=== PATIENT | male | born 1955 | race Caucasian/White ===

== ENCOUNTER 2017-11-29 09:18 | Day surgery (SDC) | payer BC ==
[~2017-11-29 09:18] MED LIST: CETI-102 PO; FLUO20CA39 PO; GABA600T2 PO; LISI1TAB13 PO; METH-603 PO; PER10325T PO
[2017-11-29] MEDS ORDERED: LIDOcaine 2% 5ml jelly ONE (09:55)
== END 2017-11-29 11:28 | disposition home or self-care (01) ==
LOC: WOUND CARE 09:18
PROVIDERS: ATTEND Surgery
DX: L97.521 Non-pressure chronic ulcer of other part of left foot limited to breakdown of skin (principal); I10 Essential (primary) hypertension; E66.9 Obesity, unspecified; I87.2 Venous insufficiency (chronic) (peripheral); F32.9 Major depressive disorder, single episode, unspecified; Z89.511 Acquired absence of right leg below knee; Z79.891 Long term (current) use of opiate analgesic; Z79.899 Other long term (current) drug therapy
CPT/HCPCS: 11044; 97597; A6021; A6206; A6446; L3260

== ENCOUNTER 2017-12-06 11:05 | Day surgery (SDC) | payer BC ==
[2017-12-06] MEDS ORDERED: LIDOcaine 2% 5ml jelly ONE (11:43)
== END 2017-12-06 12:15 | disposition home or self-care (01) ==
LOC: WOUND CARE 11:05
PROVIDERS: ATTEND Surgery
DX: L97.521 Non-pressure chronic ulcer of other part of left foot limited to breakdown of skin (principal); I10 Essential (primary) hypertension; E66.9 Obesity, unspecified; I87.2 Venous insufficiency (chronic) (peripheral); G47.30 Sleep apnea, unspecified; F32.9 Major depressive disorder, single episode, unspecified; Z89.511 Acquired absence of right leg below knee; Z79.891 Long term (current) use of opiate analgesic; Z79.899 Other long term (current) drug therapy; Z87.442 Personal history of urinary calculi
CPT/HCPCS: 11044; 36415; 83036; A6021; A6206

== ENCOUNTER 2017-12-13 09:58 | Day surgery (SDC) | payer BC | END 2017-12-13 11:58 | disposition home or self-care (01) | LOC: WOUND CARE 09:58 | PROVIDERS: ATTEND Surgery | DX: T81.89XD Other complications of procedures, not elsewhere classified, subsequent encounter (principal); L97.521 Non-pressure chronic ulcer of other part of left foot limited to breakdown of skin; L89.899 Pressure ulcer of other site, unspecified stage; I10 Essential (primary) hypertension; E66.9 Obesity, unspecified; I87.2 Venous insufficiency (chronic) (peripheral); F32.9 Major depressive disorder, single episode, unspecified; Z89.511 Acquired absence of right leg below knee; Z79.891 Long term (current) use of opiate analgesic; Z79.899 Other long term (current) drug therapy; Z87.442 Personal history of urinary calculi; Y83.8 Other surgical procedures as the cause of abnormal reaction of the patient, or of later complication, without mention of misadventure at the time of the procedure | CPT/HCPCS: 11042; A6206; A6212 ==

== ENCOUNTER 2017-12-20 09:40 | Day surgery (SDC) | payer BC, OTHER ==
[2017-12-20] MEDS ORDERED: LIDOcaine 2% 5ml jelly ONE (10:17)
== END 2017-12-20 11:25 | disposition home or self-care (01) ==
LOC: WOUND CARE 09:40
PROVIDERS: ATTEND Surgery
DX: T81.89XD Other complications of procedures, not elsewhere classified, subsequent encounter (principal); L97.521 Non-pressure chronic ulcer of other part of left foot limited to breakdown of skin; I10 Essential (primary) hypertension; E66.9 Obesity, unspecified; I87.2 Venous insufficiency (chronic) (peripheral); F32.9 Major depressive disorder, single episode, unspecified; Z89.511 Acquired absence of right leg below knee; Z79.891 Long term (current) use of opiate analgesic; Z79.899 Other long term (current) drug therapy; Z87.442 Personal history of urinary calculi; Y83.8 Other surgical procedures as the cause of abnormal reaction of the patient, or of later complication, without mention of misadventure at the time of the procedure
CPT/HCPCS: 11042; A6021; A6212; A6222

== ENCOUNTER 2017-12-27 09:47 | Day surgery (SDC) | payer BC, OTHER ==
[2017-12-27] MEDS: LIDOcaine 2% 5ml jelly ONE (10:15)
== END 2017-12-27 10:46 | disposition home or self-care (01) ==
LOC: WOUND CARE 09:47
PROVIDERS: ATTEND Surgery
DX: T81.89XD Other complications of procedures, not elsewhere classified, subsequent encounter (principal); L97.521 Non-pressure chronic ulcer of other part of left foot limited to breakdown of skin; I10 Essential (primary) hypertension; E66.9 Obesity, unspecified; I87.2 Venous insufficiency (chronic) (peripheral); F32.9 Major depressive disorder, single episode, unspecified; Z89.511 Acquired absence of right leg below knee; Z79.891 Long term (current) use of opiate analgesic; Z79.899 Other long term (current) drug therapy; Z87.442 Personal history of urinary calculi; Y83.8 Other surgical procedures as the cause of abnormal reaction of the patient, or of later complication, without mention of misadventure at the time of the procedure
CPT/HCPCS: 97597; A6021; A6206

== ENCOUNTER 2018-01-03 09:33 | Day surgery (SDC) | payer BC, OTHER ==
[2018-01-03] MEDS ORDERED: LIDOcaine 2% 5ml jelly ONE (10:12)
== END 2018-01-03 11:12 | disposition home or self-care (01) ==
LOC: WOUND CARE 09:33
PROVIDERS: ATTEND Surgery
DX: L89.899 Pressure ulcer of other site, unspecified stage (principal); L97.521 Non-pressure chronic ulcer of other part of left foot limited to breakdown of skin; I10 Essential (primary) hypertension; E66.9 Obesity, unspecified; I87.2 Venous insufficiency (chronic) (peripheral); G47.30 Sleep apnea, unspecified; F32.9 Major depressive disorder, single episode, unspecified; Z89.511 Acquired absence of right leg below knee; Z79.891 Long term (current) use of opiate analgesic; Z79.899 Other long term (current) drug therapy; Z87.442 Personal history of urinary calculi
CPT/HCPCS: 11042; A6021; A6206; A6212

== ENCOUNTER 2018-01-12 09:26 | Day surgery (SDC) | payer BC, OTHER ==
[2018-01-12] MEDS ORDERED: LIDOcaine 2% 5ml jelly ONE (10:46)
== END 2018-01-12 11:22 | disposition home or self-care (01) ==
LOC: WOUND CARE 09:26
PROVIDERS: ATTEND Surgery
DX: L97.521 Non-pressure chronic ulcer of other part of left foot limited to breakdown of skin (principal); L89.899 Pressure ulcer of other site, unspecified stage; I10 Essential (primary) hypertension; I87.2 Venous insufficiency (chronic) (peripheral); E66.9 Obesity, unspecified; G47.30 Sleep apnea, unspecified; F32.9 Major depressive disorder, single episode, unspecified; Z79.899 Other long term (current) drug therapy; Z89.511 Acquired absence of right leg below knee
CPT/HCPCS: 11042; A6021; A6206

== ENCOUNTER 2018-01-19 08:50 | Outpatient (CLI) | payer MEDICARE, OTHER | END 2018-01-19 09:45 | disposition home or self-care (01) | LOC: WOUND CARE 08:50 → EDSTATUS 09:30 → WOUND CARE 09:45 | PROVIDERS: ATTEND Surgery | DX: L97.521 Non-pressure chronic ulcer of other part of left foot limited to breakdown of skin (principal); L89.899 Pressure ulcer of other site, unspecified stage; I10 Essential (primary) hypertension; I87.2 Venous insufficiency (chronic) (peripheral); E66.9 Obesity, unspecified; G47.30 Sleep apnea, unspecified; F32.9 Major depressive disorder, single episode, unspecified; Z79.899 Other long term (current) drug therapy; Z89.511 Acquired absence of right leg below knee | CPT/HCPCS: 99211; A6021; A6206 ==

== ENCOUNTER 2018-01-24 08:53 | Day surgery (SDC) | payer MEDICARE, OTHER ==
[2018-01-24] MEDS ORDERED: LIDOcaine 2% 5ml jelly ONE (09:55)
== END 2018-01-24 10:38 | disposition home or self-care (01) ==
LOC: WOUND CARE 08:53
PROVIDERS: ATTEND Surgery
DX: L97.521 Non-pressure chronic ulcer of other part of left foot limited to breakdown of skin (principal); L89.899 Pressure ulcer of other site, unspecified stage; I10 Essential (primary) hypertension; I87.2 Venous insufficiency (chronic) (peripheral); E66.9 Obesity, unspecified; G47.30 Sleep apnea, unspecified; F32.9 Major depressive disorder, single episode, unspecified; Z79.899 Other long term (current) drug therapy; Z89.511 Acquired absence of right leg below knee
CPT/HCPCS: 11044; A6021; A6206

== ENCOUNTER 2018-02-09 09:03 | Day surgery (SDC) | payer MEDICARE, OTHER | END 2018-02-09 10:03 | disposition home or self-care (01) | LOC: WOUND CARE 09:03 | PROVIDERS: ATTEND Surgery | DX: L89.899 Pressure ulcer of other site, unspecified stage (principal); L97.521 Non-pressure chronic ulcer of other part of left foot limited to breakdown of skin; I10 Essential (primary) hypertension; I87.2 Venous insufficiency (chronic) (peripheral); E66.9 Obesity, unspecified; G47.30 Sleep apnea, unspecified; F32.9 Major depressive disorder, single episode, unspecified; Z79.899 Other long term (current) drug therapy; Z89.511 Acquired absence of right leg below knee | CPT/HCPCS: 97597; A6021; A6206; A6212 ==

== ENCOUNTER 2018-02-23 09:16 | Day surgery (SDC) | payer MEDICARE, OTHER ==
[2018-02-23] MEDS ORDERED: LIDOcaine 2% 5ml jelly ONE (09:27)
== END 2018-02-23 10:12 | disposition home or self-care (01) ==
LOC: WOUND CARE 09:16
PROVIDERS: ATTEND Surgery
DX: T87.89 Other complications of amputation stump (principal); L89.894 Pressure ulcer of other site, stage 4; I87.2 Venous insufficiency (chronic) (peripheral); I10 Essential (primary) hypertension; E66.9 Obesity, unspecified; G47.30 Sleep apnea, unspecified; F32.9 Major depressive disorder, single episode, unspecified; Z79.899 Other long term (current) drug therapy; Z89.511 Acquired absence of right leg below knee; Y83.5 Amputation of limb(s) as the cause of abnormal reaction of the patient, or of later complication, without mention of misadventure at the time of the procedure
CPT/HCPCS: 11042; 87070; 87075; 87077; 87102; A6021; A6206; A6209

== ENCOUNTER 2018-02-27 09:10 | Day surgery (SDC) | payer MEDICARE, OTHER ==
[2018-02-27] MEDS ORDERED: LIDOcaine 2% 5ml jelly ONE (10:06)
== END 2018-02-27 11:02 | disposition home or self-care (01) ==
LOC: WOUND CARE 09:10
PROVIDERS: ATTEND Surgery
DX: T87.89 Other complications of amputation stump (principal); L89.894 Pressure ulcer of other site, stage 4; L97.811 Non-pressure chronic ulcer of other part of right lower leg limited to breakdown of skin; I10 Essential (primary) hypertension; I87.2 Venous insufficiency (chronic) (peripheral); E66.9 Obesity, unspecified; G47.30 Sleep apnea, unspecified; F32.9 Major depressive disorder, single episode, unspecified; Z79.899 Other long term (current) drug therapy; Z89.511 Acquired absence of right leg below knee; Y83.5 Amputation of limb(s) as the cause of abnormal reaction of the patient, or of later complication, without mention of misadventure at the time of the procedure
CPT/HCPCS: 11043; 82948; A6021; A6206; A6212

== ENCOUNTER 2018-03-05 09:17 | Day surgery (SDC) | payer MEDICARE, OTHER ==
[2018-03-05] MEDS ORDERED: LIDOcaine 2% 5ml jelly ONE (09:57)
== END 2018-03-05 10:57 | disposition home or self-care (01) ==
LOC: WOUND CARE 09:17
PROVIDERS: ATTEND Surgery
DX: T87.89 Other complications of amputation stump (principal); L89.894 Pressure ulcer of other site, stage 4; L97.811 Non-pressure chronic ulcer of other part of right lower leg limited to breakdown of skin; I10 Essential (primary) hypertension; I87.2 Venous insufficiency (chronic) (peripheral); E66.9 Obesity, unspecified; G47.30 Sleep apnea, unspecified; F32.9 Major depressive disorder, single episode, unspecified; Z79.899 Other long term (current) drug therapy; Z89.511 Acquired absence of right leg below knee; Y83.5 Amputation of limb(s) as the cause of abnormal reaction of the patient, or of later complication, without mention of misadventure at the time of the procedure
CPT/HCPCS: 11042; A6021; A6206; A6212

== ENCOUNTER 2018-03-12 09:11 | Day surgery (SDC) | payer MEDICARE, OTHER ==
[2018-03-12] MEDS ORDERED: LIDOcaine 2% 5ml jelly ONE (09:40)
== END 2018-03-12 10:36 | disposition home or self-care (01) ==
LOC: WOUND CARE 09:11
PROVIDERS: ATTEND Surgery
DX: T87.89 Other complications of amputation stump (principal); L89.894 Pressure ulcer of other site, stage 4; I10 Essential (primary) hypertension; I87.2 Venous insufficiency (chronic) (peripheral); E66.9 Obesity, unspecified; G47.30 Sleep apnea, unspecified; F32.9 Major depressive disorder, single episode, unspecified; Z79.899 Other long term (current) drug therapy; Z89.511 Acquired absence of right leg below knee; Y83.5 Amputation of limb(s) as the cause of abnormal reaction of the patient, or of later complication, without mention of misadventure at the time of the procedure
CPT/HCPCS: 15271; A6206; A6209; Q4172; Q4102

== ENCOUNTER 2018-03-19 09:10 | Day surgery (SDC) | payer MEDICARE, OTHER ==
[2018-03-19] MEDS ORDERED: LIDOcaine 2% 5ml jelly ONE (09:41)
== END 2018-03-19 10:30 | disposition home or self-care (01) ==
LOC: WOUND CARE 09:10
PROVIDERS: ATTEND Surgery
DX: T87.89 Other complications of amputation stump (principal); L89.894 Pressure ulcer of other site, stage 4; I10 Essential (primary) hypertension; I87.2 Venous insufficiency (chronic) (peripheral); E66.9 Obesity, unspecified; G47.30 Sleep apnea, unspecified; F32.9 Major depressive disorder, single episode, unspecified; Z79.899 Other long term (current) drug therapy; Z89.511 Acquired absence of right leg below knee; Y83.5 Amputation of limb(s) as the cause of abnormal reaction of the patient, or of later complication, without mention of misadventure at the time of the procedure
CPT/HCPCS: 11042; A6021; A6206; A6212

== ENCOUNTER 2018-03-26 09:14 | Day surgery (SDC) | payer MEDICARE, OTHER ==
[2018-03-26] MEDS ORDERED: LIDOcaine 2% 5ml jelly ONE (09:38)
== END 2018-03-26 10:38 | disposition home or self-care (01) ==
LOC: WOUND CARE 09:14
PROVIDERS: ATTEND Surgery
DX: T87.89 Other complications of amputation stump (principal); L89.894 Pressure ulcer of other site, stage 4; I10 Essential (primary) hypertension; I87.2 Venous insufficiency (chronic) (peripheral); E66.9 Obesity, unspecified; G47.30 Sleep apnea, unspecified; F32.9 Major depressive disorder, single episode, unspecified; Z79.899 Other long term (current) drug therapy; Z89.511 Acquired absence of right leg below knee; Y83.5 Amputation of limb(s) as the cause of abnormal reaction of the patient, or of later complication, without mention of misadventure at the time of the procedure
CPT/HCPCS: 15271; A6021; A6209; A6222; Q4131

== ENCOUNTER 2018-04-02 09:15 | Outpatient (CLI) | payer MEDICARE, OTHER ==
[2018-04-02] MEDS ORDERED: LIDOcaine 2% 5ml jelly ONE (09:36)
== END 2018-04-02 10:46 | disposition home or self-care (01) ==
LOC: WOUND CARE 09:15
PROVIDERS: ATTEND Surgery
DX: T87.89 Other complications of amputation stump (principal); L89.894 Pressure ulcer of other site, stage 4; I10 Essential (primary) hypertension; I87.2 Venous insufficiency (chronic) (peripheral); E66.9 Obesity, unspecified; G47.30 Sleep apnea, unspecified; F32.9 Major depressive disorder, single episode, unspecified; Z79.899 Other long term (current) drug therapy; Z89.511 Acquired absence of right leg below knee; Y83.5 Amputation of limb(s) as the cause of abnormal reaction of the patient, or of later complication, without mention of misadventure at the time of the procedure
CPT/HCPCS: 99215; A6021; A6206; A6209

== ENCOUNTER 2018-04-10 09:00 | Day surgery (SDC) | payer MEDICARE, OTHER ==
[2018-04-10] MEDS ORDERED: LIDOcaine 2% 5ml jelly ONE (09:51)
== END 2018-04-10 11:04 | disposition home or self-care (01) ==
LOC: WOUND CARE 09:00
PROVIDERS: ATTEND Surgery
DX: T87.89 Other complications of amputation stump (principal); L89.894 Pressure ulcer of other site, stage 4; I10 Essential (primary) hypertension; I87.2 Venous insufficiency (chronic) (peripheral); E66.9 Obesity, unspecified; G47.30 Sleep apnea, unspecified; F32.9 Major depressive disorder, single episode, unspecified; Z79.899 Other long term (current) drug therapy; Z89.511 Acquired absence of right leg below knee; Y83.5 Amputation of limb(s) as the cause of abnormal reaction of the patient, or of later complication, without mention of misadventure at the time of the procedure
CPT/HCPCS: 15271; A6209; A6222; Q4131; A6250

== ENCOUNTER 2018-04-16 08:55 | Day surgery (SDC) | payer MEDICARE, OTHER ==
[2018-04-16] MEDS ORDERED: LIDOcaine 2% 5ml jelly ONE (09:34)
== END 2018-04-16 10:14 | disposition home or self-care (01) ==
LOC: WOUND CARE 08:55
PROVIDERS: ATTEND Surgery
DX: T87.89 Other complications of amputation stump (principal); L89.894 Pressure ulcer of other site, stage 4; I10 Essential (primary) hypertension; I87.2 Venous insufficiency (chronic) (peripheral); E66.9 Obesity, unspecified; G47.30 Sleep apnea, unspecified; F32.9 Major depressive disorder, single episode, unspecified; Z79.899 Other long term (current) drug therapy; Z89.511 Acquired absence of right leg below knee; Y83.5 Amputation of limb(s) as the cause of abnormal reaction of the patient, or of later complication, without mention of misadventure at the time of the procedure
CPT/HCPCS: 15271; A6021; A6206; A6209; Q4131; A6250

== ENCOUNTER 2018-04-23 09:00 | Day surgery (SDC) | payer MEDICARE, OTHER ==
[2018-04-23] MEDS ORDERED: LIDOcaine 2% 5ml jelly ONE (09:45)
== END 2018-04-23 10:24 | disposition home or self-care (01) ==
LOC: WOUND CARE 09:00
PROVIDERS: ATTEND Surgery
DX: T87.89 Other complications of amputation stump (principal); L89.894 Pressure ulcer of other site, stage 4; I10 Essential (primary) hypertension; I87.2 Venous insufficiency (chronic) (peripheral); E66.9 Obesity, unspecified; G47.30 Sleep apnea, unspecified; F32.9 Major depressive disorder, single episode, unspecified; Z79.899 Other long term (current) drug therapy; Z89.511 Acquired absence of right leg below knee; Y83.5 Amputation of limb(s) as the cause of abnormal reaction of the patient, or of later complication, without mention of misadventure at the time of the procedure
CPT/HCPCS: 97597; A6021; A6206; A6212; A6446

== ENCOUNTER 2018-04-30 08:15 | Day surgery (SDC) | payer MEDICARE, OTHER | END 2018-04-30 10:04 | disposition home or self-care (01) | LOC: WOUND CARE 08:15 | PROVIDERS: ATTEND Surgery | DX: T87.89 Other complications of amputation stump (principal); L89.894 Pressure ulcer of other site, stage 4; I10 Essential (primary) hypertension; I87.2 Venous insufficiency (chronic) (peripheral); E66.9 Obesity, unspecified; G47.30 Sleep apnea, unspecified; F32.9 Major depressive disorder, single episode, unspecified; Z79.899 Other long term (current) drug therapy; Z89.511 Acquired absence of right leg below knee; Y83.5 Amputation of limb(s) as the cause of abnormal reaction of the patient, or of later complication, without mention of misadventure at the time of the procedure | CPT/HCPCS: 15271; A6021; A6206; A6209; A6212; Q4131; A6250 ==

== ENCOUNTER 2018-05-23 09:00 | Day surgery (SDC) | payer MEDICARE, OTHER ==
[2018-05-23] MEDS ORDERED: LIDOcaine 2% 5ml jelly ONE (09:35)
[2018-05-23] MEDS ORDERED: CIPR-230 PO (14:01)
== END 2018-05-23 10:31 | disposition home or self-care (01) ==
LOC: WOUND CARE 09:00
PROVIDERS: ATTEND Surgery
DX: T87.89 Other complications of amputation stump (principal); L89.894 Pressure ulcer of other site, stage 4; I10 Essential (primary) hypertension; I87.2 Venous insufficiency (chronic) (peripheral); E66.9 Obesity, unspecified; G47.30 Sleep apnea, unspecified; F32.9 Major depressive disorder, single episode, unspecified; Z79.899 Other long term (current) drug therapy; Z89.511 Acquired absence of right leg below knee; Y83.5 Amputation of limb(s) as the cause of abnormal reaction of the patient, or of later complication, without mention of misadventure at the time of the procedure
CPT/HCPCS: 11042; 87070; 87075; 87076; 87077; 87102; 87176; 87185; 87186; A6021; A6196

== ENCOUNTER 2018-05-30 09:11 | Day surgery (SDC) | payer MEDICARE, OTHER ==
[~2018-05-30 09:11] MED LIST changes: +CIPR-230 PO
[2018-05-30] MEDS ORDERED: LIDOcaine 2% 5ml jelly ONE (09:51)
[2018-05-30] MEDS ORDERED: CLIN300C17 (14:34)
== END 2018-05-30 10:37 | disposition home or self-care (01) ==
LOC: WOUND CARE 09:11
PROVIDERS: ATTEND Surgery
DX: T87.89 Other complications of amputation stump (principal); L89.894 Pressure ulcer of other site, stage 4; I10 Essential (primary) hypertension; I87.2 Venous insufficiency (chronic) (peripheral); E66.9 Obesity, unspecified; G47.30 Sleep apnea, unspecified; F32.9 Major depressive disorder, single episode, unspecified; Z79.899 Other long term (current) drug therapy; Z89.511 Acquired absence of right leg below knee; Y83.5 Amputation of limb(s) as the cause of abnormal reaction of the patient, or of later complication, without mention of misadventure at the time of the procedure
CPT/HCPCS: 97597; A6021; A6206; A6212

== ENCOUNTER 2018-06-06 08:25 | Day surgery (SDC) | payer MEDICARE, OTHER ==
[~2018-06-06 08:25] MED LIST changes: +CLIN300C17
[2018-06-06] MEDS ORDERED: LIDOcaine 2% 5ml jelly ONE (09:32)
[2018-06-07] MEDS ORDERED: PREG150C PO (16:38)
== END 2018-06-06 10:42 | disposition home or self-care (01) ==
LOC: WOUND CARE 08:25
PROVIDERS: ATTEND Surgery
DX: T87.89 Other complications of amputation stump (principal); L89.894 Pressure ulcer of other site, stage 4; I10 Essential (primary) hypertension; I87.2 Venous insufficiency (chronic) (peripheral); E66.9 Obesity, unspecified; G47.30 Sleep apnea, unspecified; F32.9 Major depressive disorder, single episode, unspecified; Z79.899 Other long term (current) drug therapy; Z89.511 Acquired absence of right leg below knee; Y83.5 Amputation of limb(s) as the cause of abnormal reaction of the patient, or of later complication, without mention of misadventure at the time of the procedure
CPT/HCPCS: 11042; A6021; A6206; A6212

== ENCOUNTER 2018-06-12 06:34 | Day surgery (SDC) | payer MEDICARE, OTHER ==
[~2018-06-12] VITALS: Ht 180.3 cm; Wt 122.0 kg
[2018-06-12] VITALS (10 sets, daily range): BP systolic 85–107; BP diastolic 49–70
[~2018-06-12 06:34] MED LIST changes: -CETI-102 PO; -CIPR-230 PO; -CLIN300C17; -GABA600T2 PO; +PREG150C PO; +ceFAZolin inj. 3,000 MG in normal saline 100ml IV soln 100 ML IV ONE; +famotidine 20mg tablet PO ONE; +ringers solution, lacted 1,000 ML IV SCH
[2018-06-12] MEDS ORDERED: fentaNYL/PF 50MCG/1 ML 2ML syringe IV PRN ×2 (08:10)
[2018-06-12] MEDS ORDERED: ringers solution, lacted 1,000 ML IV SCH (08:10)
[2018-06-12] MEDS ORDERED: labetalol 20mg/4ml (5mg/ml) syringe IV PRN (08:10)
[2018-06-12] MEDS ORDERED: morphine 4 MG/ML inj SYRINge IV PRN ×2 (08:10)
[2018-06-12] MEDS ORDERED: ondansetron/PF 4mg/2ml inj IV PRN ×2 (08:10→10:45)
[2018-06-12] MEDS ORDERED: hydrALAZINE 20mg/ml inj. IV PRN (08:10)
[2018-06-12 08:15] LABS: BASOPHILS % (AUTO) 0.3 % (0-1); EOSINOPHILS # (AUTO) 0.2 X10'3 (0-0.9); EOSINOPHILS % (AUTO) 2.8 % (0-6); HEMATOCRIT 33.5 % (42.0-52.0); HEMOGLOBIN 11.5 g/dl (14.0-17.9); LYMPHOCYTES # (AUTO) 2.2 X10'3 (1.1-4.8); LYMPHOCYTES % (AUTO) 26.2 % (21-51); MEAN CORPUSCULAR HEMOGLOBIN 29.9 PG (27.0-31.0); MEAN CORPUSCULAR HGB CONC 34.3 % (33.0-36.5); MEAN CORPUSCULAR VOLUME 87.3 FL (78-98); MEAN PLATELET VOLUME 8.3 FL (7.4-10.4); MONOCYTES # (AUTO) 0.8 X10'3 (0-0.9); MONOCYTES % (AUTO) 9.6 % (2-12); NEUTROPHILS # (AUTO) 5.1 X10'3 (1.8-7.7); NEUTROPHILS % (AUTO) 61.1 % (42-75); PLATELET COUNT 337 X10'3 (140-440); RED BLOOD COUNT 3.83 X10'6 (4.70-6.10); RED CELL DISTRIBUTION WIDTH 13.4 % (11.5-14.5); WHITE BLOOD COUNT 8.4 X10'3 (4.5-11.0)
[2018-06-12 08:17] LABS: ALANINE AMINOTRANSFERASE 24 U/L (12-78); ALBUMIN/GLOBULIN RATIO 0.7 (1.1-1.5); ALKALINE PHOSPHATASE 38 IU/L (46-116); ANION GAP 6 (8-16); ASPARTATE AMINO TRANSFERASE 13 U/L (10-37); BILIRUBIN,TOTAL 0.3 MG/DL (0.1-1.0); BLOOD UREA NITROGEN 14 MG/DL (7-18); BUN/CREATININE RATIO 15.6 (5.4-32.0); CHLORIDE 97 MMOL/L (99-107); GLUCOSE 104 MG/DL (70-104); SODIUM 135 MMOL/L (135-145); TOTAL CARBON DIOXIDE 31.7 MMOL/L (24-32); TOTAL PROTEIN 7.5 G/DL (6.4-8.2); eGFR 86 ML/MIN
[2018-06-12] MEDS ORDERED: BUPIVAcaine/PF 7.5mg/ml (0.75%) 10ml vial ONE (08:20)
[2018-06-12] MEDS ORDERED: fentaNYL/PF 50MCG/1 ML 2ML syringe ONE (08:27)
[2018-06-12] MEDS ORDERED: MIDAZolam 5mg/5ml vial ONE (08:27)
[2018-06-12] MEDS ORDERED: ceFAZolin 1000mg inj ONE (09:43)
[2018-06-12] MEDS ORDERED: ePHEDrine 50MG/ML INJ. ONE (09:55)
[2018-06-12] MEDS ORDERED: oxyCODONE/APAP 10/325mg tablet PO PRN (11:10)
[2018-06-12] MEDS ORDERED: ketorolac trometh. 30mg/ml inj. IV PRN (15:10)
[2018-06-12] MEDS ORDERED: pregabalin 75mg capsule PO SCH (20:00)
[2018-06-13] MEDS ORDERED: methadone 10mg tablet PO SCH (08:00)
[2018-06-13] MEDS ORDERED: FLUoxetine 20mg capsule PO SCH (08:00)
[2018-06-13] MEDS ORDERED: lisinopril 20mg tablet PO SCH (08:00)
== END 2018-06-12 19:07 | disposition home or self-care (01) ==
LOC: PAS 06:34 → SUR 3N 11:42 → PAS 19:07
PROVIDERS: ATTEND Surgery
DX: T87.43 Infection of amputation stump, right lower extremity (principal); M86.661 Other chronic osteomyelitis, right tibia and fibula; I44.2 Atrioventricular block, complete; I10 Essential (primary) hypertension; G43.909 Migraine, unspecified, not intractable, without status migrainosus; G47.33 Obstructive sleep apnea (adult) (pediatric); E66.9 Obesity, unspecified; F41.8 Other specified anxiety disorders; F32.9 Major depressive disorder, single episode, unspecified; G60.0 Hereditary motor and sensory neuropathy; Z79.891 Long term (current) use of opiate analgesic; Z88.5 Allergy status to narcotic agent; Z68.37 Body mass index [BMI] 37.0-37.9, adult; Z87.442 Personal history of urinary calculi; Z85.828 Personal history of other malignant neoplasm of skin; Z89.511 Acquired absence of right leg below knee; Z79.899 Other long term (current) drug therapy; Z98.890 Other specified postprocedural states
CPT/HCPCS: 27884; 36415; 80053; 85025; 93005; 97161; 97530; A6222; A6446; A6449; J0690; J1885; J2250; J3010; J3490; J7030; J7120; 88305; 88311; A7000

== ENCOUNTER 2018-06-15 09:22 | Outpatient (CLI) | payer MEDICARE, OTHER ==
[~2018-06-15] VITALS: Ht 180.3 cm; Wt 121.6 kg
[~2018-06-15 09:22] MED LIST changes: -ceFAZolin inj. 3,000 MG in normal saline 100ml IV soln 100 ML IV ONE; -famotidine 20mg tablet PO ONE; -ringers solution, lacted 1,000 ML IV SCH
[2018-06-15] MEDS: mupirocin 2% ointment 22GM ONE (11:36)
== END 2018-06-15 11:52 | disposition home or self-care (01) ==
LOC: WOUND CARE 09:22
PROVIDERS: ATTEND Surgery
DX: T87.89 Other complications of amputation stump (principal); L89.894 Pressure ulcer of other site, stage 4; L97.812 Non-pressure chronic ulcer of other part of right lower leg with fat layer exposed; I10 Essential (primary) hypertension; I87.2 Venous insufficiency (chronic) (peripheral); E66.9 Obesity, unspecified; G47.30 Sleep apnea, unspecified; F32.9 Major depressive disorder, single episode, unspecified; Z79.899 Other long term (current) drug therapy; Z89.511 Acquired absence of right leg below knee; Y83.5 Amputation of limb(s) as the cause of abnormal reaction of the patient, or of later complication, without mention of misadventure at the time of the procedure
CPT/HCPCS: 99215; A6223; A6446

== ENCOUNTER 2018-06-22 09:00 | Day surgery (SDC) | payer MEDICARE, OTHER | END 2018-06-22 11:06 | disposition home or self-care (01) | LOC: WOUND CARE 09:00 | PROVIDERS: ATTEND Surgery | DX: Z47.81 Encounter for orthopedic aftercare following surgical amputation (principal); T87.89 Other complications of amputation stump; L89.894 Pressure ulcer of other site, stage 4; L97.812 Non-pressure chronic ulcer of other part of right lower leg with fat layer exposed; I10 Essential (primary) hypertension; I87.2 Venous insufficiency (chronic) (peripheral); E66.9 Obesity, unspecified; G47.30 Sleep apnea, unspecified; F32.9 Major depressive disorder, single episode, unspecified; Z79.899 Other long term (current) drug therapy; Z89.511 Acquired absence of right leg below knee; Y83.5 Amputation of limb(s) as the cause of abnormal reaction of the patient, or of later complication, without mention of misadventure at the time of the procedure | CPT/HCPCS: 99215; A6222; A6446 ==

== ENCOUNTER 2018-06-29 09:15 | Day surgery (SDC) | payer MEDICARE, OTHER ==
[2018-06-29] MEDS ORDERED: LIDOcaine 2% 5ml jelly ONE ×2 (09:41→11:20)
[2018-06-29] MEDS ORDERED: CLIN300C70 PO (15:27)
== END 2018-06-29 12:37 | disposition home or self-care (01) ==
LOC: WOUND CARE 09:15
PROVIDERS: ATTEND Surgery
DX: Z47.81 Encounter for orthopedic aftercare following surgical amputation (principal); T87.81 Dehiscence of amputation stump; L89.894 Pressure ulcer of other site, stage 4; L97.812 Non-pressure chronic ulcer of other part of right lower leg with fat layer exposed; I10 Essential (primary) hypertension; I87.2 Venous insufficiency (chronic) (peripheral); E66.9 Obesity, unspecified; G47.30 Sleep apnea, unspecified; F32.9 Major depressive disorder, single episode, unspecified; Z79.899 Other long term (current) drug therapy; Z89.511 Acquired absence of right leg below knee; Y83.5 Amputation of limb(s) as the cause of abnormal reaction of the patient, or of later complication, without mention of misadventure at the time of the procedure
CPT/HCPCS: 11042; 87070; 87075; 87077; 87102; 97605; A6206

== ENCOUNTER 2018-07-03 09:48 | Outpatient (CLI) | payer MEDICARE, OTHER ==
[~2018-07-03 09:48] MED LIST changes: +CLIN300C70 PO
[2018-07-03] MEDS ORDERED: LIDOcaine 2% 5ml jelly ONE ×2 (10:00→10:21)
== END 2018-07-03 11:19 | disposition home or self-care (01) ==
LOC: WOUND CARE 09:48
PROVIDERS: ATTEND Surgery
DX: T87.81 Dehiscence of amputation stump (principal); L89.894 Pressure ulcer of other site, stage 4; L97.812 Non-pressure chronic ulcer of other part of right lower leg with fat layer exposed; I10 Essential (primary) hypertension; I87.2 Venous insufficiency (chronic) (peripheral); E66.9 Obesity, unspecified; G47.30 Sleep apnea, unspecified; F32.9 Major depressive disorder, single episode, unspecified; Z79.899 Other long term (current) drug therapy; Z89.511 Acquired absence of right leg below knee; Y83.5 Amputation of limb(s) as the cause of abnormal reaction of the patient, or of later complication, without mention of misadventure at the time of the procedure
CPT/HCPCS: 97605; A6206; A4456

== ENCOUNTER 2018-07-06 10:11 | Day surgery (SDC) | payer MEDICARE, OTHER ==
[2018-07-06] MEDS ORDERED: LIDOcaine/PRILOcaine 5gm cream TP ONE ×2 (11:24→11:35)
== END 2018-07-06 12:18 | disposition home or self-care (01) ==
LOC: WOUND CARE 10:11
PROVIDERS: ATTEND Surgery
DX: Z47.81 Encounter for orthopedic aftercare following surgical amputation (principal); T87.81 Dehiscence of amputation stump; L89.894 Pressure ulcer of other site, stage 4; L97.812 Non-pressure chronic ulcer of other part of right lower leg with fat layer exposed; I10 Essential (primary) hypertension; I87.2 Venous insufficiency (chronic) (peripheral); E66.9 Obesity, unspecified; G47.30 Sleep apnea, unspecified; F32.9 Major depressive disorder, single episode, unspecified; Z79.899 Other long term (current) drug therapy; Z89.511 Acquired absence of right leg below knee; Y83.5 Amputation of limb(s) as the cause of abnormal reaction of the patient, or of later complication, without mention of misadventure at the time of the procedure
CPT/HCPCS: 97597; A6206

== ENCOUNTER 2018-07-10 09:12 | Day surgery (SDC) | payer MEDICARE, OTHER ==
[2018-07-10] MEDS ORDERED: LIDOcaine/PRILOcaine 5gm cream TP ONE ×2 (09:44→11:01)
== END 2018-07-10 12:18 | disposition home or self-care (01) ==
LOC: WOUND CARE 09:12
PROVIDERS: ATTEND Surgery
DX: Z47.81 Encounter for orthopedic aftercare following surgical amputation (principal); T87.81 Dehiscence of amputation stump; L89.894 Pressure ulcer of other site, stage 4; L97.812 Non-pressure chronic ulcer of other part of right lower leg with fat layer exposed; I10 Essential (primary) hypertension; I87.2 Venous insufficiency (chronic) (peripheral); E66.9 Obesity, unspecified; G47.30 Sleep apnea, unspecified; F32.9 Major depressive disorder, single episode, unspecified; Z79.899 Other long term (current) drug therapy; Z89.511 Acquired absence of right leg below knee; Y83.5 Amputation of limb(s) as the cause of abnormal reaction of the patient, or of later complication, without mention of misadventure at the time of the procedure
CPT/HCPCS: 73590; 97597; A6266; A6446

== ENCOUNTER 2018-07-13 08:54 | Day surgery (SDC) | payer MEDICARE, OTHER ==
[2018-07-13] MEDS ORDERED: LIDOcaine/PRILOcaine 5gm cream TP ONE (09:45)
== END 2018-07-13 10:59 | disposition home or self-care (01) ==
LOC: WOUND CARE 08:54
PROVIDERS: ATTEND Surgery
DX: Z47.81 Encounter for orthopedic aftercare following surgical amputation (principal); T87.81 Dehiscence of amputation stump; L89.894 Pressure ulcer of other site, stage 4; L97.812 Non-pressure chronic ulcer of other part of right lower leg with fat layer exposed; I10 Essential (primary) hypertension; I87.2 Venous insufficiency (chronic) (peripheral); E66.9 Obesity, unspecified; G47.30 Sleep apnea, unspecified; F32.9 Major depressive disorder, single episode, unspecified; Z79.899 Other long term (current) drug therapy; Z89.511 Acquired absence of right leg below knee; Y83.5 Amputation of limb(s) as the cause of abnormal reaction of the patient, or of later complication, without mention of misadventure at the time of the procedure
CPT/HCPCS: 97605; A6206

== ENCOUNTER 2018-07-24 09:11 | Outpatient (CLI) | payer MEDICARE, OTHER ==
[~2018-07-24 09:11] MED LIST changes: -METH-603 PO
== END 2018-07-24 10:33 | disposition home or self-care (01) ==
LOC: WOUND CARE 09:11
PROVIDERS: ATTEND Surgery
DX: T87.81 Dehiscence of amputation stump (principal); L89.894 Pressure ulcer of other site, stage 4; L97.812 Non-pressure chronic ulcer of other part of right lower leg with fat layer exposed; I10 Essential (primary) hypertension; I87.2 Venous insufficiency (chronic) (peripheral); E66.9 Obesity, unspecified; G47.30 Sleep apnea, unspecified; G62.9 Polyneuropathy, unspecified; F32.9 Major depressive disorder, single episode, unspecified; Z79.899 Other long term (current) drug therapy; Z89.511 Acquired absence of right leg below knee; Y83.5 Amputation of limb(s) as the cause of abnormal reaction of the patient, or of later complication, without mention of misadventure at the time of the procedure
CPT/HCPCS: 97605; A6021

== ENCOUNTER 2018-07-27 09:07 | Day surgery (SDC) | payer MEDICARE, OTHER | END 2018-07-27 11:40 | disposition home or self-care (01) | LOC: WOUND CARE 09:07 | PROVIDERS: ATTEND Surgery | DX: T87.81 Dehiscence of amputation stump (principal); L89.894 Pressure ulcer of other site, stage 4; L97.812 Non-pressure chronic ulcer of other part of right lower leg with fat layer exposed; I10 Essential (primary) hypertension; I87.2 Venous insufficiency (chronic) (peripheral); E66.9 Obesity, unspecified; G47.30 Sleep apnea, unspecified; G62.9 Polyneuropathy, unspecified; F32.9 Major depressive disorder, single episode, unspecified; Z79.899 Other long term (current) drug therapy; Z89.511 Acquired absence of right leg below knee; Y83.5 Amputation of limb(s) as the cause of abnormal reaction of the patient, or of later complication, without mention of misadventure at the time of the procedure | CPT/HCPCS: 11042; 97605; A6021 ==

== ENCOUNTER 2018-07-31 09:11 | Day surgery (SDC) | payer MEDICARE, OTHER | END 2018-07-31 10:47 | disposition home or self-care (01) | LOC: WOUND CARE 09:11 | PROVIDERS: ATTEND Surgery | DX: T87.81 Dehiscence of amputation stump (principal); L89.894 Pressure ulcer of other site, stage 4; L97.812 Non-pressure chronic ulcer of other part of right lower leg with fat layer exposed; I10 Essential (primary) hypertension; I87.2 Venous insufficiency (chronic) (peripheral); E66.9 Obesity, unspecified; G47.30 Sleep apnea, unspecified; G62.9 Polyneuropathy, unspecified; F32.9 Major depressive disorder, single episode, unspecified; Z79.899 Other long term (current) drug therapy; Z89.511 Acquired absence of right leg below knee; Y83.5 Amputation of limb(s) as the cause of abnormal reaction of the patient, or of later complication, without mention of misadventure at the time of the procedure | CPT/HCPCS: 15271; A6209; A6222; A6446; Q4131 ==

== ENCOUNTER 2018-08-06 09:58 | Day surgery (SDC) | payer MEDICARE, OTHER | END 2018-08-06 13:55 | disposition home or self-care (01) | LOC: WOUND CARE 09:58 | PROVIDERS: ATTEND Surgery | DX: T87.81 Dehiscence of amputation stump (principal); L89.894 Pressure ulcer of other site, stage 4; L97.812 Non-pressure chronic ulcer of other part of right lower leg with fat layer exposed; I10 Essential (primary) hypertension; I87.2 Venous insufficiency (chronic) (peripheral); E66.9 Obesity, unspecified; G47.30 Sleep apnea, unspecified; G62.9 Polyneuropathy, unspecified; F32.9 Major depressive disorder, single episode, unspecified; Z79.899 Other long term (current) drug therapy; Z89.511 Acquired absence of right leg below knee; Y83.5 Amputation of limb(s) as the cause of abnormal reaction of the patient, or of later complication, without mention of misadventure at the time of the procedure | CPT/HCPCS: 73590; 97605 ==

== ENCOUNTER 2018-08-10 09:15 | Outpatient (CLI) | payer MEDICARE, OTHER ==
[~2018-08-10 09:15] MED LIST changes: -CLIN300C70 PO
== END 2018-08-10 10:58 | disposition home or self-care (01) ==
LOC: WOUND CARE 09:15
PROVIDERS: ATTEND Surgery
DX: T87.81 Dehiscence of amputation stump (principal); L89.894 Pressure ulcer of other site, stage 4; L97.812 Non-pressure chronic ulcer of other part of right lower leg with fat layer exposed; I10 Essential (primary) hypertension; I87.2 Venous insufficiency (chronic) (peripheral); E66.9 Obesity, unspecified; G47.30 Sleep apnea, unspecified; G62.9 Polyneuropathy, unspecified; F32.9 Major depressive disorder, single episode, unspecified; Z79.899 Other long term (current) drug therapy; Z89.511 Acquired absence of right leg below knee; Y83.5 Amputation of limb(s) as the cause of abnormal reaction of the patient, or of later complication, without mention of misadventure at the time of the procedure
CPT/HCPCS: 97605; A4456

== ENCOUNTER 2018-08-14 09:28 | Day surgery (SDC) | payer MEDICARE, OTHER | END 2018-08-14 12:22 | disposition home or self-care (01) | LOC: WOUND CARE 09:28 | PROVIDERS: ATTEND Surgery | DX: T87.81 Dehiscence of amputation stump (principal); L89.894 Pressure ulcer of other site, stage 4; I10 Essential (primary) hypertension; I87.2 Venous insufficiency (chronic) (peripheral); E66.9 Obesity, unspecified; G47.30 Sleep apnea, unspecified; G62.9 Polyneuropathy, unspecified; F32.9 Major depressive disorder, single episode, unspecified; Z79.899 Other long term (current) drug therapy; Y83.5 Amputation of limb(s) as the cause of abnormal reaction of the patient, or of later complication, without mention of misadventure at the time of the procedure | CPT/HCPCS: 15271; A6222; Q4133; A4456; A6250 ==

== ENCOUNTER 2018-08-17 09:20 | Outpatient (CLI) | payer MEDICARE, OTHER | END 2018-08-17 11:36 | disposition home or self-care (01) | LOC: WOUND CARE 09:20 → EDSTATUS 09:30 → WOUND CARE 11:36 | PROVIDERS: ATTEND Surgery | DX: T87.81 Dehiscence of amputation stump (principal); L89.894 Pressure ulcer of other site, stage 4; I10 Essential (primary) hypertension; I87.2 Venous insufficiency (chronic) (peripheral); E66.9 Obesity, unspecified; G47.30 Sleep apnea, unspecified; G62.9 Polyneuropathy, unspecified; F32.9 Major depressive disorder, single episode, unspecified; Z79.899 Other long term (current) drug therapy; Y83.5 Amputation of limb(s) as the cause of abnormal reaction of the patient, or of later complication, without mention of misadventure at the time of the procedure | CPT/HCPCS: 97605; A6222; A4456 ==

== ENCOUNTER 2018-08-21 09:01 | Day surgery (SDC) | payer MEDICARE, OTHER | END 2018-08-21 10:33 | disposition home or self-care (01) | LOC: WOUND CARE 09:01 | PROVIDERS: ATTEND Surgery | DX: T87.81 Dehiscence of amputation stump (principal); L89.894 Pressure ulcer of other site, stage 4; I10 Essential (primary) hypertension; I87.2 Venous insufficiency (chronic) (peripheral); E66.9 Obesity, unspecified; G47.30 Sleep apnea, unspecified; G62.9 Polyneuropathy, unspecified; F32.9 Major depressive disorder, single episode, unspecified; Z79.899 Other long term (current) drug therapy; Y83.5 Amputation of limb(s) as the cause of abnormal reaction of the patient, or of later complication, without mention of misadventure at the time of the procedure | CPT/HCPCS: 15271; A6209; A6446; Q4133; A6250 ==

== ENCOUNTER 2018-08-28 09:16 | Day surgery (SDC) | payer MEDICARE, OTHER | END 2018-08-28 11:06 | disposition home or self-care (01) | LOC: WOUND CARE 09:16 | PROVIDERS: ATTEND Surgery | DX: T87.81 Dehiscence of amputation stump (principal); L89.894 Pressure ulcer of other site, stage 4; I10 Essential (primary) hypertension; I87.2 Venous insufficiency (chronic) (peripheral); E66.9 Obesity, unspecified; G47.30 Sleep apnea, unspecified; G62.9 Polyneuropathy, unspecified; F32.9 Major depressive disorder, single episode, unspecified; Z79.899 Other long term (current) drug therapy; Y83.5 Amputation of limb(s) as the cause of abnormal reaction of the patient, or of later complication, without mention of misadventure at the time of the procedure | CPT/HCPCS: 97597; A6021; A6206; A6209; A6446 ==

== ENCOUNTER 2018-09-04 09:48 | Day surgery (SDC) | payer MEDICARE, OTHER | END 2018-09-04 10:35 | disposition home or self-care (01) | LOC: WOUND CARE 09:48 | PROVIDERS: ATTEND Surgery | DX: T87.81 Dehiscence of amputation stump (principal); L89.894 Pressure ulcer of other site, stage 4; I10 Essential (primary) hypertension; I87.2 Venous insufficiency (chronic) (peripheral); E66.9 Obesity, unspecified; G47.30 Sleep apnea, unspecified; G62.9 Polyneuropathy, unspecified; F32.9 Major depressive disorder, single episode, unspecified; Z79.899 Other long term (current) drug therapy; Y83.5 Amputation of limb(s) as the cause of abnormal reaction of the patient, or of later complication, without mention of misadventure at the time of the procedure | CPT/HCPCS: 11042; A6021; A6206; A6212 ==

== ENCOUNTER 2018-09-12 08:40 | Day surgery (SDC) | payer MEDICARE, OTHER | END 2018-09-12 10:51 | disposition home or self-care (01) | LOC: WOUND CARE 08:40 | PROVIDERS: ATTEND Surgery | DX: T87.81 Dehiscence of amputation stump (principal); L89.894 Pressure ulcer of other site, stage 4; I10 Essential (primary) hypertension; I87.2 Venous insufficiency (chronic) (peripheral); E66.9 Obesity, unspecified; G47.30 Sleep apnea, unspecified; G62.9 Polyneuropathy, unspecified; F32.9 Major depressive disorder, single episode, unspecified; Z79.899 Other long term (current) drug therapy; Z87.442 Personal history of urinary calculi; Y83.5 Amputation of limb(s) as the cause of abnormal reaction of the patient, or of later complication, without mention of misadventure at the time of the procedure | CPT/HCPCS: 15271; A6209; A6222; Q4133; A6250; A6446 ==

== ENCOUNTER 2018-09-19 09:21 | Day surgery (SDC) | payer MEDICARE, OTHER | END 2018-09-19 11:01 | disposition home or self-care (01) | LOC: WOUND CARE 09:21 | PROVIDERS: ATTEND Surgery | DX: T87.81 Dehiscence of amputation stump (principal); L89.894 Pressure ulcer of other site, stage 4; I10 Essential (primary) hypertension; I87.2 Venous insufficiency (chronic) (peripheral); E66.9 Obesity, unspecified; G47.30 Sleep apnea, unspecified; G62.9 Polyneuropathy, unspecified; F32.9 Major depressive disorder, single episode, unspecified; Z79.899 Other long term (current) drug therapy; Z87.442 Personal history of urinary calculi; Y83.5 Amputation of limb(s) as the cause of abnormal reaction of the patient, or of later complication, without mention of misadventure at the time of the procedure | CPT/HCPCS: 17250; A6209; A6021; A6206 ==

== ENCOUNTER 2018-09-26 08:50 | Day surgery (SDC) | payer MEDICARE, OTHER ==
[2018-09-26] MEDS ORDERED: LIDOcaine 2% 5ml jelly MM ONE (14:25)
== END 2018-09-26 10:30 | disposition home or self-care (01) ==
LOC: WOUND CARE 08:50
PROVIDERS: ATTEND Surgery
DX: T87.81 Dehiscence of amputation stump (principal); L89.894 Pressure ulcer of other site, stage 4; I10 Essential (primary) hypertension; I87.2 Venous insufficiency (chronic) (peripheral); E66.9 Obesity, unspecified; G47.30 Sleep apnea, unspecified; G62.9 Polyneuropathy, unspecified; F32.9 Major depressive disorder, single episode, unspecified; Z79.899 Other long term (current) drug therapy; Z87.442 Personal history of urinary calculi; Y83.5 Amputation of limb(s) as the cause of abnormal reaction of the patient, or of later complication, without mention of misadventure at the time of the procedure
CPT/HCPCS: 97597; A6209; 17250; A6021; A6206

== ENCOUNTER 2018-10-10 09:33 | Day surgery (SDC) | payer MEDICARE, OTHER ==
[2018-10-10] MEDS ORDERED: LIDOcaine/PRILOcaine 5gm cream TP ONE (10:44)
== END 2018-10-10 11:54 | disposition home or self-care (01) ==
LOC: WOUND CARE 09:33
PROVIDERS: ATTEND Surgery
DX: T87.81 Dehiscence of amputation stump (principal); L89.894 Pressure ulcer of other site, stage 4; I10 Essential (primary) hypertension; I87.2 Venous insufficiency (chronic) (peripheral); E66.9 Obesity, unspecified; G47.30 Sleep apnea, unspecified; G62.9 Polyneuropathy, unspecified; F32.9 Major depressive disorder, single episode, unspecified; Z79.899 Other long term (current) drug therapy; Z87.442 Personal history of urinary calculi; Y83.5 Amputation of limb(s) as the cause of abnormal reaction of the patient, or of later complication, without mention of misadventure at the time of the procedure
CPT/HCPCS: 97597; A6209; 17250; A6021; A6206

== ENCOUNTER 2018-11-08 09:06 | Day surgery (SDC) | payer MEDICARE, OTHER ==
--- NOTE | 2018-11-08 16:12 | NUR ---
Patient arrived safely into [facility] via scooter, accompanied by spouse. Patient admitted to outpatient wound care for physician visit. Dressing removed and wounds cleansed. 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 Patient assessed for changes in conditions, medications and medical history. 9994-Dr. Olvera at bedside accompanied by RN. Wounds assessed, time out performed by MD/RN. Wounds debrided as detailed in the physician progress/procedure note. Plan of care discussed with patient. Dressings placed per MD orders. Patient instructed on the signs and symptoms of infection and to call the Wound Center if any occur or to go to the ED if we are closed: Increased pain in wound Increase in drainage from the wound Redness in the skin surrounding the wound Bleeding from the wound Temperature of 101 or greater Patient instructed that the weight of their body puts a large amount of pressure on their wounds. This pressure keeps the new tissue from growing and inhibits new blood vessels from forming. Explained that, if they continue to bear weight on a body part that has a wound, the time it takes to heal the wound increases, the wound may get worse or the wound may not heal at all. Patient verbalized understanding of all discharge instructions and plan of care and ambulated independently out to [facility] in stable condition with no sign or symptom of distress at time of discharge. Addendum: 11/08/18 at 1614 by Emeli Carpenter RN Amended: Links added.
== END 2018-11-08 09:59 | disposition home or self-care (01) ==
LOC: WOUND CARE 09:06
PROVIDERS: ATTEND Surgery
DX: T87.81 Dehiscence of amputation stump (principal); L89.894 Pressure ulcer of other site, stage 4; I10 Essential (primary) hypertension; I87.2 Venous insufficiency (chronic) (peripheral); E66.9 Obesity, unspecified; G47.30 Sleep apnea, unspecified; G62.9 Polyneuropathy, unspecified; F32.9 Major depressive disorder, single episode, unspecified; Z79.899 Other long term (current) drug therapy; Z87.442 Personal history of urinary calculi; Y83.5 Amputation of limb(s) as the cause of abnormal reaction of the patient, or of later complication, without mention of misadventure at the time of the procedure
CPT/HCPCS: 97597; A6209; A6021; A6206

== ENCOUNTER 2018-11-14 09:30 | Outpatient (CLI) | payer MEDICARE, OTHER ==
--- NOTE | 2018-11-14 11:45 | NUR ---
Patient arrived using scooter from [facility] accompanied by his and was admitted to outpatient wound care for physician visit with Tian Olvera MD. Dressing removed, wound cleansed. Patient assessed for changes in conditions, medications and medical history. 1140 - Dr. Olvera at bedside accompanied by RN. Wound assessed by and is declared healed; patient is to follow up at the clinic in 3 weeks and bring his new prosthesis at that time. Plan of care discussed with patient. No dressings ordered or placed. Patient instructed on the signs and symptoms of infection and to call the Wound Center if any occur or to go to the ED if we are closed: Increased pain in wound Increase in drainage from the wound Redness in the skin surrounding the wound Bleeding from the wound Temperature of 101 or greater Patient instructed that the weight of their body puts a large amount of pressure on their wounds. This pressure keeps the new tissue from growing and inhibits new blood vessels from forming. Explained that, if they continue to bear weight on a body part that has a wound, the time it takes to heal the wound increases, the wound may get worse or the wound may not heal at all. Patient verbalized understanding of all discharge instructions and plan of care and exited via scooter accompanied by his out to [facility] in stable condition with no sign or symptom of distress at time of discharge.
== END 2018-11-14 11:46 | disposition home or self-care (01) ==
LOC: WOUND CARE 09:30
PROVIDERS: ATTEND Surgery
DX: T87.81 Dehiscence of amputation stump (principal); L89.894 Pressure ulcer of other site, stage 4; I10 Essential (primary) hypertension; I87.2 Venous insufficiency (chronic) (peripheral); E66.9 Obesity, unspecified; G47.30 Sleep apnea, unspecified; G62.9 Polyneuropathy, unspecified; F32.9 Major depressive disorder, single episode, unspecified; Z79.899 Other long term (current) drug therapy; Z87.442 Personal history of urinary calculi; Y83.5 Amputation of limb(s) as the cause of abnormal reaction of the patient, or of later complication, without mention of misadventure at the time of the procedure
CPT/HCPCS: G0463

== ENCOUNTER 2019-10-22 19:17 | Inpatient (IN) | payer MEDICARE, OTHER ==
[~2019-10-22] VITALS: Ht 180.3 cm; Wt 122.0 kg
[~2019-10-22 19:17] MED LIST changes: -LISI1TAB13 PO; +LISI1TAB29 PO
[2019-10-22 23:33] LABS: BASOPHILS # (AUTO) 0.1 X10'3 (0-0.2); BASOPHILS % (AUTO) 0.8 % (0-1); EOSINOPHILS # (AUTO) 0.4 X10'3 (0-0.9); EOSINOPHILS % (AUTO) 4.2 % (0-6); HEMATOCRIT 41.5 % (42.0-52.0); HEMOGLOBIN 14.2 g/dl (14.0-17.9); LYMPHOCYTES # (AUTO) 3.5 X10'3 (1.1-4.8); LYMPHOCYTES % (AUTO) 33.9 % (21-51); MEAN CORPUSCULAR HEMOGLOBIN 29.4 PG (27.0-31.0); MEAN CORPUSCULAR HGB CONC 34.1 g/dL (33.0-36.5); MEAN PLATELET VOLUME 8.6 FL (7.4-10.4); MONOCYTES # (AUTO) 0.6 X10'3 (0-0.9); MONOCYTES % (AUTO) 6.2 % (2-12); NEUTROPHILS # (AUTO) 5.7 X10'3 (1.8-7.7); NEUTROPHILS % (AUTO) 54.9 % (42-75); PLATELET COUNT 342 X10'3 (140-440); RED BLOOD COUNT 4.82 X10'6 (4.70-6.10); RED CELL DISTRIBUTION WIDTH 15.1 % (11.5-14.5); WHITE BLOOD COUNT 10.3 X10'3 (4.5-11.0)
[2019-10-22 23:48] LABS: ALANINE AMINOTRANSFERASE 27 U/L (12-78); ALBUMIN 3.4 G/DL (3.4-5.0); ALBUMIN/GLOBULIN RATIO 0.8 (1.1-1.5); ALKALINE PHOSPHATASE 54 IU/L (46-116); ANION GAP 6 (8-16); ASPARTATE AMINO TRANSFERASE 19 U/L (10-37); BILIRUBIN,TOTAL 0.8 MG/DL (0.1-1.0); BLOOD UREA NITROGEN 16 MG/DL (7-18); BUN/CREATININE RATIO 16.5 (5.4-32.0); CHLORIDE 101 MMOL/L (99-107); CREATININE 0.97 MG/DL (0.60-1.10); GLUCOSE 137 MG/DL (70-104); SODIUM 136 MMOL/L (135-145); TOTAL CARBON DIOXIDE 29.2 MMOL/L (24-32); TOTAL PROTEIN 7.5 G/DL (6.4-8.2); eGFR 79 ML/MIN
[2019-10-22 23:52] LABS: POTASSIUM 2.9 MMOL/L (3.5-5.1)
[2019-10-22] MEDS ORDERED: potassium Cl 20 mEq SR tablet PO ONE (23:55)
[2019-10-23] VITALS (16 sets, daily range): BP systolic 112–158; BP diastolic 58–75
[2019-10-23] MEDS ORDERED: TEST200V10 IM (00:48)
[2019-10-23] MEDS ORDERED: FLUO20CA39 PO (00:48)
[2019-10-23] MEDS ORDERED: magnesium hydroxide 30ml (MOM) UD suspension PO PRN (01:45)
[2019-10-23] MEDS ORDERED: magnesium 4gm in 100ml NS 100 ML IV PRN (01:45)
[2019-10-23] MEDS ORDERED: magnesium Cl slow-release 64mg tablet PO PRN (01:45)
[2019-10-23] MEDS ORDERED: mag hydrox/Alum hydrox/simeth 30ml oral suspension PO PRN (01:45)
[2019-10-23] MEDS ORDERED: potassium CL 10mEq/100ml bag 100 ML IV PRN ×2 (01:45)
[2019-10-23] MEDS ORDERED: ondansetron/PF 4mg/2ml inj IV PRN ×2 (01:45→18:05)
[2019-10-23] MEDS ORDERED: potassium Cl 20 mEq SR tablet PO PRN (01:45)
[2019-10-23] MEDS ORDERED: magnesium 2GM in 50ml NS 50 ML IV PRN (01:45)
[2019-10-23] MEDS ORDERED: acetaminophen 325mg tablet PO PRN ×2 (01:45)
--- NOTE | 2019-10-23 02:21 | NUR ---
Received report from MANJINDER Carter. Awaiting patient arrival to the floor.
--- NOTE | 2019-10-23 02:32 | NUR ---
Patient arrived to the floor via wheelchair. Placed in 345B. Patient is awake and alert on room air, in no apparent distress. Call light and items of frequent use within reach. Visitor at bedside. Will continue to monitor.
[2019-10-23] MEDS: potassium Cl 20 mEq SR tablet PO PRN ×2 (05:17→09:21)
--- NOTE | 2019-10-23 06:13 | NUR ---
Problems reprioritized. Patient report given, questions answered & plan of care reviewed with MANJINDER Abdalla.
[2019-10-23] MEDS: K and/or MAG REPLACEMENT MC SCH ×2 (08:00→20:00)
[2019-10-23] MEDS ORDERED: FLUoxetine 20mg capsule PO SCH (08:00)
[2019-10-23] MEDS: pregabalin 75mg capsule PO SCH ×4 (08:00→23:32)
--- NOTE | 2019-10-23 09:00 | NUR ---
WOUND PICTURES TAKEN AND PLACED IN CHART.
[2019-10-23] MEDS: HYDROchlorothiazide 25mg tablet PO SCH (09:21)
[2019-10-23] MEDS: FLUoxetine 20mg capsule PO SCH (09:22)
[2019-10-23] MEDS: enoxaparin 40mg/0.4ml syringe SQ SCH ×2 (09:23→09:52)
[2019-10-23] MEDS: lisinopril 20mg tablet PO SCH (09:35)
--- NOTE | 2019-10-23 10:02 | NUR ---
CPAP at night Addendum: 10/23/19 at 1006 by Lianne Goodman RN Amended: Links added.
--- NOTE | 2019-10-23 10:17 | NUR ---
Poppy held this AM. Pt took lisinopril this AM and he took advil yesterday. no antibiotics ordered. Addendum: 10/23/19 at 1019 by Lianne Goodman RN Amended: Links added.
[2019-10-23 10:51] LABS: PARTIAL THROMBOPLASTIN TIME 28 SECONDS (22-32)
--- NOTE | 2019-10-23 13:00 | NUR ---
Andrea rounded on pt. stating that he is taking pt. into surgery- OR to have sutures place in R BKA wound. OKed pt. to discharge after procedure.
--- NOTE | 2019-10-23 15:39 | NUR ---
Pt. eager to go to surgery. States he will leave tonight no matter what. States he has pain in his "butt". Encouraged pt. to reposition and offered help. Pt. in room with several visitors and denied help. Requesting medication for pain. Called Andrea. See new orders.
--- NOTE | 2019-10-23 16:20 | NUR ---
Pt. taken to surgery by 2 OR staff.
[2019-10-23] MEDS ORDERED: BUPIVAcaine/PF 2.5 mg/ml (0.25%) 30ml vial ONE (17:14)
[2019-10-23] MEDS ORDERED: sevoflurane 250ml liquid IH ONE (17:39)
[2019-10-23] MEDS ORDERED: ePHEDrine 50MG/ML INJ. ONE (17:39)
[2019-10-23] MEDS ORDERED: fentaNYL/PF 50MCG/1 ML 2ML syringe ONE (17:39)
[2019-10-23] MEDS ORDERED: midazolam 2 mg/2 ml injection ONE (17:40)
[2019-10-23] MEDS ORDERED: propofol inj 20 ML IV ONE (17:46)
[2019-10-23] MEDS ORDERED: ceFAZolin 1000mg inj ONE ×2 (17:47)
[2019-10-23] MEDS ORDERED: ringers solution, lacted 1,000 ML IV SCH (18:02)
[2019-10-23] MEDS ORDERED: morphine 4 MG/ML inj SYRINge IV PRN ×2 (18:05)
[2019-10-23] MEDS ORDERED: proCHLORperazine 10 MG/2 ml inj IV PRN (18:05)
[2019-10-23] MEDS ORDERED: meperidine/PF 25mg/ml syringe IV PRN ×3 (18:05)
[2019-10-23] MEDS ORDERED: neomy sulf/polymyxin B sulf. GU irrigation 1ml amp IR ONE (18:06)
--- NOTE | 2019-10-23 18:07 | NUR ---
Received report from MANJINDER Abdalla. Patient currently in OR for procedure. Awaiting patient arrival back to the floor.
[2019-10-23] MEDS ORDERED: mupirocin 2% ointment 22GM ONE (18:08)
--- NOTE | 2019-10-23 18:20 | NUR ---
Problems reprioritized. Patient report given, questions answered & plan of care reviewed with Ema DUNBAR. Pt. currently not on unit but in OR. Oncoming RN aware.
--- NOTE | 2019-10-23 18:25 | NUR ---
Received from OR via BED, accompanied by Anesthesiologist OCTAVIO and report given by Anesthesiolgist. PT SLEEPY, OXYGENATING WELL ON 10 LPM 02 VIA MASK, NO RESP DISTRESS NOTED. PT DENIES NAUSEA OR PAIN AT THIS TIME. R LE STUMP IS COVERED WITH A STUMP SOCK, CDI. SCD TO NON OP LEG. VSS.
--- NOTE | 2019-10-23 18:53 | NUR ---
Received report from MANJINDER Vega from Recovery. Awaiting patient arrival to the floor.
--- NOTE | 2019-10-23 19:00 | NUR ---
Report called to receiving nurse. Transferred via BED Belongings IN PT ROOM. DENIES PAIN, VSS. DECLINED OFFERS OF PO FLUIDS. TRANSFERRED BACK TO 3 SURG IN STABLE CONDITION. Special Issues communicated to receiving nurse.
[2019-10-23] MEDS: HYDROcodone/acetaminophen 10/325mg tab PO PRN (21:47)
[2019-10-24] VITALS: BP 112/68
[2019-10-24 04:00] VITALS: BP 111/76
[2019-10-24 05:16] LABS: BASOPHILS % (AUTO) 0.5 % (0-1); EOSINOPHILS # (AUTO) 0.3 X10'3 (0-0.9); EOSINOPHILS % (AUTO) 3.6 % (0-6); HEMATOCRIT 38.9 % (42.0-52.0); HEMOGLOBIN 13.2 g/dl (14.0-17.9); LYMPHOCYTES % (AUTO) 25.3 % (21-51); MEAN CORPUSCULAR HEMOGLOBIN 29.4 PG (27.0-31.0); MEAN CORPUSCULAR VOLUME 86.3 FL (78-98); MEAN PLATELET VOLUME 8.6 FL (7.4-10.4); MONOCYTES # (AUTO) 0.9 X10'3 (0-0.9); MONOCYTES % (AUTO) 11.1 % (2-12); NEUTROPHILS # (AUTO) 4.7 X10'3 (1.8-7.7); NEUTROPHILS % (AUTO) 59.5 % (42-75); PLATELET COUNT 271 X10'3 (140-440); RED BLOOD COUNT 4.51 X10'6 (4.70-6.10); RED CELL DISTRIBUTION WIDTH 15.1 % (11.5-14.5); WHITE BLOOD COUNT 7.9 X10'3 (4.5-11.0)
[2019-10-24 05:34] LABS: ALANINE AMINOTRANSFERASE 22 U/L (12-78); ALBUMIN 3.1 G/DL (3.4-5.0); ALBUMIN/GLOBULIN RATIO 0.8 (1.1-1.5); ALKALINE PHOSPHATASE 47 IU/L (46-116); ANION GAP 10 (8-16); ASPARTATE AMINO TRANSFERASE 14 U/L (10-37); BILIRUBIN,TOTAL 1.1 MG/DL (0.1-1.0); BLOOD UREA NITROGEN 17 MG/DL (7-18); BUN/CREATININE RATIO 18.5 (5.4-32.0); CALCIUM 8.5 MG/DL (8.5-10.1); CHLORIDE 101 MMOL/L (99-107); CREATININE 0.92 MG/DL (0.60-1.10); GLUCOSE 100 MG/DL (70-104); MAGNESIUM 1.7 MG/DL (1.5-2.4); POTASSIUM 3.5 MMOL/L (3.5-5.1); SODIUM 137 MMOL/L (135-145); TOTAL CARBON DIOXIDE 26.2 MMOL/L (24-32); TOTAL PROTEIN 7.1 G/DL (6.4-8.2); eGFR 84 ML/MIN
--- NOTE | 2019-10-24 06:06 | NUR ---
Problems reprioritized. Patient report given, questions answered & plan of care reviewed with MANJINDER Abdalla.
[2019-10-24] MEDS: pregabalin 75mg capsule PO SCH (06:56)
[2019-10-24] MEDS: HYDROchlorothiazide 25mg tablet PO SCH (06:56)
[2019-10-24] MEDS: FLUoxetine 20mg capsule PO SCH (06:56)
[2019-10-24] MEDS: enoxaparin 40mg/0.4ml syringe SQ SCH (06:59)
[2019-10-24] MEDS: lisinopril 20mg tablet PO SCH (06:59)
[2019-10-24] MEDS: K and/or MAG REPLACEMENT MC SCH (07:05)
[2019-10-24 07:31] VITALS: BP 127/84
--- NOTE | 2019-10-24 08:13 | NUR ---
PAGER ID: [phone] MESSAGE: Dudley Keller [phone] Pt. promised that he could go home by Sp yesterday after procedure. Still here. Pt. upset. Lianne [phone]
--- NOTE | 2019-10-24 08:27 | NUR ---
PAGER ID: [phone] MESSAGE: Dudley Keller 345B Don clinton DC again, gave wound care orders of Bactroban ointment to incision BID and no shower for 48 hours. F/u within one week with him. Lianne [phone]
[2019-10-24] MEDS: HYDROcodone/acetaminophen 10/325mg tab PO PRN (09:38)
[2019-10-24] MEDS ORDERED: HYDR-4353 PO (09:44)
[2019-10-24] MEDS ORDERED: BACI1PAC7 TP (10:05)
--- NOTE | 2019-10-24 10:50 | NUR ---
Paged PT- they responded, working with pt. now for WC evaluation.
--- NOTE | 2019-10-24 11:47 | NUR ---
Paged case management r/t w/c.
[2019-10-24 11:50] VITALS: BP 126/68
--- NOTE | 2019-10-24 13:52 | NUR ---
Case management called to say pt. recently received a wheelchair in 2018, and insurance will not cover it. He will need to take his wheelchair back to [facility] and get it repaired. Pt. aware. Discharged and off unit.
--- NOTE | 2019-10-24 14:00 | NUR ---
Pt. left in a stable condition and is aware to follow up with outpatient therapies and MD Ochoa. Medications and discharge paperwork reviewed with pt. 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 ASE reviewed with pt. IV DC'd, pressure bandage applied, no s/sx of bleeding noted. Pt. left with all of his belongings, escorted from hospital by staff member or volunteer in a w/c to private vehicle to discharge home. Bandage supplies provided on discharge.
[2019-10-28] MEDS ORDERED: TESTOSTERONE CYPIONATE 200 MG/ML VIAL IM SCH (08:00)
== END 2019-10-24 13:50 | disposition home or self-care (01) | DRG 983 ==
LOC: ER 19:18 → ED HOLD 10-23 02:01 → EDBEDREQ 10-23 02:11 → SUR 3N 10-23 02:30
PROVIDERS: ADMIT Family Medicine; ATTEND Family Medicine
PROC: 0YQF0ZZ Repair Right Knee Region, Open Approach (ICD-10-PCS; principal; 2019-10-23 17:39)
DX: T87.81 Dehiscence of amputation stump (principal); E87.6 Hypokalemia; I10 Essential (primary) hypertension; G89.29 Other chronic pain; M54.9 Dorsalgia, unspecified; Y79.3 Surgical instruments, materials and orthopedic devices (including sutures) associated with adverse incidents; Y83.5 Amputation of limb(s) as the cause of abnormal reaction of the patient, or of later complication, without mention of misadventure at the time of the procedure; G47.30 Sleep apnea, unspecified; F32.9 Major depressive disorder, single episode, unspecified; Z79.899 Other long term (current) drug therapy; Z88.8 Allergy status to other drugs, medicaments and biological substances; Z80.1 Family history of malignant neoplasm of trachea, bronchus and lung; Z80.6 Family history of leukemia; Z89.511 Acquired absence of right leg below knee
CPT/HCPCS: 36415; 71045; 80053; 83735; 84132; 85025; 85610; 85730; 86885; 86900; 86901; 87081; 93005; 97161; 97530; 97535; 99285; A4618; A6222; A6446; A6449; A6455; A7000; G0378; J0690; J1650; J2175; J2250; J2704; J3010; J3490; J7120

== ENCOUNTER 2022-12-17 17:59 | Emergency (ER) | payer MEDICARE, OTHER ==
[~2022-12-17] VITALS: Ht 180.3 cm; Wt 105.0 kg
[~2022-12-17 17:59] MED LIST changes: +HYDR-4353 PO; -LISI1TAB29 PO; +LISI1TAB53 PO; -PER10325T PO; +TEST200V33 IM
[2022-12-17 18:19] VITALS: BP 157/71
== END 2022-12-17 19:40 | disposition home or self-care (01) ==
LOC: VAS 18:00
DX: S63.267A Dislocation of metacarpophalangeal joint of left little finger, initial encounter (principal); G89.29 Other chronic pain; M54.9 Dorsalgia, unspecified; I10 Essential (primary) hypertension; Z88.5 Allergy status to narcotic agent; Z79.899 Other long term (current) drug therapy; W18.39XA Other fall on same level, initial encounter; Y93.89 Activity, other specified; Y92.89 Other specified places as the place of occurrence of the external cause; Y99.8 Other external cause status
CPT/HCPCS: 26735; 26770; 29125; 73110; 73130; 73140; 99284